=== PATIENT | female | born 1985 | race Two or more races ===

== ENCOUNTER 2020-08-16 15:58 | Emergency (ER) | payer OTHER ==
[~2020-08-16] VITALS: Ht 157.5 cm; Wt 74.8 kg
[2020-08-16] MEDS ORDERED: LOSARTAN-HCTZ1 EACH (16:35)
== END 2020-08-16 18:54 | disposition home or self-care (01) ==
LOC: ER 15:58
DX: N61.1 Abscess of the breast and nipple (principal); B95.62 Methicillin resistant Staphylococcus aureus infection as the cause of diseases classified elsewhere; I10 Essential (primary) hypertension

== ENCOUNTER → 2020-09-06 | Emergency (ER) | payer OTHER ==
[~2020-09-06] VITALS: Ht 157.5 cm; Wt 74.8 kg
[~2020-09-06] MED LIST: BENADRYL25 MG PO; LOSARTAN-HCTZ1 EACH; MEDROL4 MG PO
== END | disposition home or self-care (01) ==
LOC: ER 22:14
DX: T78.49XA Other allergy, initial encounter (principal); R21 Rash and other nonspecific skin eruption